=== PATIENT | male | born 1970 | race Two or more races ===

== ENCOUNTER 2019-09-10 04:25 | Emergency (ER) | payer MEDICARE, MEDICAID ==
[~2019-09-10] VITALS: Ht 182.9 cm; Wt 109.0 kg
[~2019-09-10 04:25] MED LIST: CYCL-1 PO; LISI10TA4 PO; METH4TAB3 PO; PANT-47 PO; QUET150T2 PO
[2019-09-10] MEDS ORDERED: normal saline 1000ML IV soln IV ONE (04:55)
[2019-09-10] MEDS ORDERED: CefTRIAXone/D5W-Rocephin 1gm 50 ML IV ONE (05:15)
[2019-09-10 05:30] LABS: BASOPHILS # (AUTO) 0.1 X10'3 (0-0.2); BASOPHILS % (AUTO) 1.1 % (0-1); EOSINOPHILS # (AUTO) 0.1 X10'3 (0-0.9); EOSINOPHILS % (AUTO) 1.9 % (0-6); HEMATOCRIT 45.7 % (42.0-52.0); HEMOGLOBIN 15.7 g/dl (14.0-17.9); LYMPHOCYTES # (AUTO) 1.8 X10'3 (1.1-4.8); LYMPHOCYTES % (AUTO) 23.5 % (21-51); MEAN CORPUSCULAR HEMOGLOBIN 30.3 PG (27.0-31.0); MEAN CORPUSCULAR HGB CONC 34.3 g/dL (33.0-36.5); MEAN CORPUSCULAR VOLUME 88.3 FL (78-98); MEAN PLATELET VOLUME 6.4 FL (7.4-10.4); MONOCYTES # (AUTO) 0.6 X10'3 (0-0.9); MONOCYTES % (AUTO) 8.3 % (2-12); NEUTROPHILS # (AUTO) 4.9 X10'3 (1.8-7.7); NEUTROPHILS % (AUTO) 65.2 % (42-75); PLATELET COUNT 305 X10'3 (140-440); RED BLOOD COUNT 5.17 X10'6 (4.70-6.10); RED CELL DISTRIBUTION WIDTH 13.1 % (11.5-14.5); WHITE BLOOD COUNT 7.6 X10'3 (4.5-11.0)
[2019-09-10 05:47] LABS: ALANINE AMINOTRANSFERASE 32 U/L (12-78); ALBUMIN 3.9 G/DL (3.4-5.0); ALBUMIN/GLOBULIN RATIO 1.2 (1.1-1.5); ALKALINE PHOSPHATASE 89 IU/L (46-116); ANION GAP 7 (8-16); ASPARTATE AMINO TRANSFERASE 12 U/L (10-37); BILIRUBIN,TOTAL 0.3 MG/DL (0.1-1.0); BLOOD UREA NITROGEN 21 MG/DL (7-18); BUN/CREATININE RATIO 23.6 (5.4-32.0); CALCIUM 8.9 MG/DL (8.5-10.1); CHLORIDE 106 MMOL/L (99-107); CREATININE 0.89 MG/DL (0.60-1.10); GLUCOSE 96 MG/DL (70-104); POTASSIUM 3.8 MMOL/L (3.5-5.1); SODIUM 142 MMOL/L (135-145); TOTAL CARBON DIOXIDE 29.4 MMOL/L (24-32); TOTAL PROTEIN 7.2 G/DL (6.4-8.2); eGFR > 90 ML/MIN
[2019-09-10 06:20] VITALS: BP 137/72
[2019-09-10] MEDS ORDERED: SULF1TAB49 PO (06:49)
[2019-09-10] MEDS ORDERED: CEPH500C5 PO (06:49)
== END 2019-09-10 07:02 | disposition left against medical advice (07) ==
LOC: ER 04:26
DX: L53.8 Other specified erythematous conditions (principal); A46 Erysipelas; I10 Essential (primary) hypertension; G89.29 Other chronic pain; Z98.890 Other specified postprocedural states; Z88.6 Allergy status to analgesic agent; Z88.5 Allergy status to narcotic agent; Z79.899 Other long term (current) drug therapy
CPT/HCPCS: 36415; 80053; 83605; 84145; 85025; 87040; 96365; 99283; J0696; J7030

== ENCOUNTER 2020-02-21 23:01 | Emergency (ER) | payer MEDICARE, MEDICAID ==
[~2020-02-21] VITALS: Ht 182.9 cm; Wt 109.1 kg
[~2020-02-21 23:01] MED LIST changes: -CYCL-1 PO; -METH4TAB3 PO; -PANT-47 PO
[2020-02-21] MEDS ORDERED: ondansetron/PF 4mg/2ml inj IV ONE (23:25)
[2020-02-21] MEDS ORDERED: normal saline 1000ML IV soln IVB ONE (23:25)
[2020-02-21] MEDS ORDERED: thiamine 100mg tablet PO ONE (23:25)
[2020-02-21] MEDS ORDERED: magnesium oxide 400mg tablet PO ONE (23:25)
[2020-02-21] MEDS ORDERED: phenobarbital inj 260 MG in normal saline 100ml IV soln 100 ML IV ONE (23:25)
--- NOTE | 2020-02-21 23:58 | NUR ---
REPORT GIVEN TO LANDEN GUTIERREZ, PHENOBARITAL INFUSING VIA PUMP, 1ST LITER NS INFUSING W/O
--- NOTE | 2020-02-22 00:01 | NUR ---
CHARTED Ximena BURT RN INSTEAD OF HOWARD GUTIERREZ
[2020-02-22 00:17] LABS: ALANINE AMINOTRANSFERASE 32 U/L (12-78); ALBUMIN/GLOBULIN RATIO 1.2 (1.1-1.5); ALKALINE PHOSPHATASE 91 IU/L (46-116); ANION GAP 11 (8-16); ASPARTATE AMINO TRANSFERASE 23 U/L (10-37); BILIRUBIN,TOTAL 0.5 MG/DL (0.1-1.0); BLOOD UREA NITROGEN 26 MG/DL (7-18); BUN/CREATININE RATIO 29.5 (5.4-32.0); CALCIUM 8.9 MG/DL (8.5-10.1); CHLORIDE 106 MMOL/L (99-107); CREATININE 0.88 MG/DL (0.60-1.10); ETHANOL < 0.010 GM/DL (0.0-0.010); GLUCOSE 88 MG/DL (70-104); SODIUM 144 MMOL/L (135-145); TOTAL CARBON DIOXIDE 26.7 MMOL/L (24-32); TOTAL PROTEIN 7.4 G/DL (6.4-8.2); eGFR > 90 ML/MIN
[2020-02-22 00:18] LABS: POTASSIUM 3.8 MMOL/L (3.5-5.1)
[2020-02-22 00:48] LABS: BASOPHILS # (AUTO) 0.1 X10'3 (0-0.2); BASOPHILS % (AUTO) 0.9 % (0-1); EOSINOPHILS # (AUTO) 0.2 X10'3 (0-0.9); EOSINOPHILS % (AUTO) 1.8 % (0-6); HEMATOCRIT 45.7 % (42.0-52.0); HEMOGLOBIN 15.4 g/dl (14.0-17.9); LYMPHOCYTES # (AUTO) 2.9 X10'3 (1.1-4.8); MEAN CORPUSCULAR HEMOGLOBIN 30.1 PG (27.0-31.0); MEAN CORPUSCULAR HGB CONC 33.8 g/dL (33.0-36.5); MEAN CORPUSCULAR VOLUME 89.2 FL (78-98); MEAN PLATELET VOLUME 6.8 FL (7.4-10.4); MONOCYTES % (AUTO) 10.7 % (2-12); NEUTROPHILS # (AUTO) 5.5 X10'3 (1.8-7.7); NEUTROPHILS % (AUTO) 56.6 % (42-75); PLATELET COUNT 303 X10'3 (140-440); RED BLOOD COUNT 5.12 X10'6 (4.70-6.10); RED CELL DISTRIBUTION WIDTH 13.1 % (11.5-14.5); WHITE BLOOD COUNT 9.8 X10'3 (4.5-11.0)
[2020-02-22 00:56] LABS: URINE AMPHETAMINE SCREEN POSITIVE (Neg); URINE BARBITUATE SCREEN POSITIVE (Neg); URINE BENZODIAZEPINES SCREEN NEGATIVE (Neg); URINE CANNABINOID SCREEN NEGATIVE (Neg); URINE COCAINE SCREEN NEGATIVE (Neg); URINE METHADONE SCREEN NEGATIVE (Neg); URINE OPIATE SCREEN NEGATIVE (Neg); URINE PHENCYCLIDINE SCREEN NEGATIVE (Neg)
[2020-02-22 01:01] LABS: CLARITY,URINE CLEAR (Clear); COLOR,URINE YELLOW (Yellow); GLUCOSE, URINE NEGATIVE (Neg); KETONES,URINE NEGATIVE (Neg); LEUKOCYTE ESTERASE ,URINE NEGATIVE (Neg); NITRITES, URINE NEGATIVE (Neg); OCCULT BLOOD,URINE TRACE-INTACT (Neg); PROTEIN,URINE NEGATIVE (Neg)
[2020-02-22 01:02] LABS: UA COLLECTION TYPE CLN CATCH MIDSTREAM
--- NOTE | 2020-02-22 01:07 | NUR ---
Spoke with MD augustin pt's HR and complain of back pain. to ahuja in orders.
[2020-02-22] MEDS ORDERED: phenobarbital inj 130 MG in normal saline 100ml IV soln 100 ML IV ONE (01:10)
[2020-02-22] MEDS ORDERED: ketorolac tromethamine 15mg/ml inj. IV ONE (01:10)
[2020-02-22 01:11] LABS: BACTERIA,URINE NONE SEEN /HPF (Neg); MUCUS STRANDS NONE SEEN /LPF (Neg); SQUAMOUS EPITHELIAL CELL,UR FEW /LPF (FEW); WBC,URINE 0-4 /HPF (0-4)
[2020-02-22 02:31] VITALS: BP 153/106
== END 2020-02-22 02:43 | disposition home or self-care (01) ==
LOC: ER 23:01
DX: F10.239 Alcohol dependence with withdrawal, unspecified (principal); F15.10 Other stimulant abuse, uncomplicated; I10 Essential (primary) hypertension; G47.30 Sleep apnea, unspecified; G89.29 Other chronic pain; F32.9 Major depressive disorder, single episode, unspecified; R11.2 Nausea with vomiting, unspecified; Z98.890 Other specified postprocedural states; Z72.89 Other problems related to lifestyle; Z88.8 Allergy status to other drugs, medicaments and biological substances; Z79.899 Other long term (current) drug therapy; Y90.0 Blood alcohol level of less than 20 mg/100 ml
CPT/HCPCS: 36415; 71045; 80053; 80305; 80320; 81001; 83605; 83735; 83880; 84145; 84484; 85025; 87040; 96361; 96365; 96366; 96375; 99285; J1885; J2405; J2560; J7030

== ENCOUNTER 2022-01-14 17:54 | Emergency (ER) | payer MEDICARE ==
[~2022-01-14] VITALS: Ht 175.3 cm; Wt 111.4 kg
[~2022-01-14 17:54] MED LIST changes: +LISI10TA27 PO; -LISI10TA4 PO
[2022-01-14 18:01] VITALS: BP 160/85
[2022-01-14] MEDS ORDERED: ketorolac trometh inj. 60 MG/2 ML VIAL IM ONE (19:55)
[2022-01-14] MEDS ORDERED: IBUP-1984 PO (20:13)
== END 2022-01-14 20:17 | disposition home or self-care (01) ==
LOC: ER 17:55
DX: G62.9 Polyneuropathy, unspecified (principal); G56.02 Carpal tunnel syndrome, left upper limb; M79.642 Pain in left hand; M19.042 Primary osteoarthritis, left hand; I10 Essential (primary) hypertension; G89.29 Other chronic pain; F32.A Depression, unspecified; F15.90 Other stimulant use, unspecified, uncomplicated; Z72.89 Other problems related to lifestyle; Z98.890 Other specified postprocedural states; Z88.6 Allergy status to analgesic agent; Z88.8 Allergy status to other drugs, medicaments and biological substances; Z79.899 Other long term (current) drug therapy
CPT/HCPCS: 96372; 99283; J1885

== ENCOUNTER 2022-05-30 15:07 | Emergency (ER) | payer MEDICARE ==
[~2022-05-30] VITALS: Ht 175.3 cm; Wt 109.1 kg
[2022-05-30 16:10] VITALS: BP 131/91
== END 2022-05-31 01:23 | disposition left against medical advice (07) ==
LOC: ER 15:07
DX: M79.606 Pain in leg, unspecified (principal); Z53.21 Procedure and treatment not carried out due to patient leaving prior to being seen by health care provider

== ENCOUNTER 2022-06-24 13:42 | Emergency (ER) | payer MEDICARE ==
[2022-06-24] MEDS ORDERED: aspirin 81mg tab.chew PO ONE (14:00)
== END 2022-06-24 16:02 | disposition left against medical advice (07) ==
LOC: ER 13:43
DX: R07.89 Other chest pain (principal); Z53.21 Procedure and treatment not carried out due to patient leaving prior to being seen by health care provider; I10 Essential (primary) hypertension; G89.29 Other chronic pain; M54.50 Low back pain, unspecified; F15.20 Other stimulant dependence, uncomplicated
CPT/HCPCS: 93005

== ENCOUNTER 2025-06-17 18:37 | Emergency (ER) | payer MEDICARE, MEDICAID ==
[~2025-06-17] VITALS: Ht 175.3 cm; Wt 78.9 kg
[2025-06-17 19:38] VITALS: BP 145/95; PULSE 89; RESP 15; TEMP 96.8; O2SAT 99
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
[2025-06-18] MEDS ORDERED: CEPH500C3 PO (12:41)
== END 2025-06-17 22:03 | disposition left against medical advice (07) ==
LOC: ER 18:37
DX: S51.002A Unspecified open wound of left elbow, initial encounter (principal); F15.90 Other stimulant use, unspecified, uncomplicated; F10.10 Alcohol abuse, uncomplicated; I10 Essential (primary) hypertension; G89.29 Other chronic pain; G47.30 Sleep apnea, unspecified; F32.A Depression, unspecified; Z88.5 Allergy status to narcotic agent; Z88.8 Allergy status to other drugs, medicaments and biological substances; Z79.899 Other long term (current) drug therapy; Y90.9 Presence of alcohol in blood, level not specified; X58.XXXA Exposure to other specified factors, initial encounter; Y93.89 Activity, other specified; Y92.89 Other specified places as the place of occurrence of the external cause; Y99.8 Other external cause status
CPT/HCPCS: 99282

== ENCOUNTER 2025-06-18 11:24 | Emergency (ER) | payer MEDICARE, MEDICAID ==
[~2025-06-18] VITALS: Ht 175.3 cm; Wt 115.0 kg
[2025-06-18 11:52] VITALS: TEMP 98.2
[2025-06-18 11:58] LABS: MEAN PLATELET VOLUME 6.2 FL (7.4-10.4); RED CELL DISTRIBUTION WIDTH 13.4 % (11.5-14.5)
--- NOTE | 2025-06-18 12:04 | RADIOLOGY REPORT ---
EXAM: DI ELBOW, COMPLETE (3VW MIN) HISTORY: LEFT ELBOW PAIN COMPARISON: None TECHNIQUE: 5 views of the left elbow were performed. FINDINGS: No acute fracture or effusion are identified about the left elbow. No significant joint space narrowing. There is a small calcification adjacent to the lateral humeral epicondyle. There is diffuse subcutaneous edema, greater medially and posteriorly. IMPRESSION: 1. No acute fracture of the left elbow. 2. Calcification adjacent to the lateral humeral epicondyle may be related to chronic calcific epicondylosis. 3. Subcutaneous edema may be due to cellulitis or soft tissue trauma.
[2025-06-18 12:16] LABS: CREATININE 0.82 MG/DL (0.60-1.10); TOTAL CARBON DIOXIDE 29.7 MMOL/L (24-32); eCRCL 103 ML/MIN; eGFR > 90 ML/MIN
[2025-06-18] MEDS ORDERED: CEPH500C3 PO (12:41)
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
[2025-06-18 12:51] VITALS: BP 136/96; PULSE 83; RESP 15; O2SAT 99
== END 2025-06-18 12:53 | disposition home or self-care (01) ==
LOC: ER 11:25
DX: S51.012A Laceration without foreign body of left elbow, initial encounter (principal); L03.114 Cellulitis of left upper limb; F32.A Depression, unspecified; F15.90 Other stimulant use, unspecified, uncomplicated; F10.10 Alcohol abuse, uncomplicated; I10 Essential (primary) hypertension; G47.30 Sleep apnea, unspecified; G89.29 Other chronic pain; Z88.5 Allergy status to narcotic agent; Z88.8 Allergy status to other drugs, medicaments and biological substances; Z79.899 Other long term (current) drug therapy; Y90.9 Presence of alcohol in blood, level not specified; W22.09XA Striking against other stationary object, initial encounter; Y93.89 Activity, other specified; Y92.89 Other specified places as the place of occurrence of the external cause; Y99.8 Other external cause status
CPT/HCPCS: 36415; 73080; 80048; 85025; 99284; A6402; A6449